=== PATIENT | female | born 1950 | race Caucasian/White ===

== ENCOUNTER 2024-05-07 19:18 | Inpatient (IN) | payer MEDICARE, OTHER, SELFPAY ==
[2024-05-07 12:21] VITALS: BP 136/90
[2024-05-07 13:17] LABS: % Basophils 0.1 % (0-2); % Eosinophils 0.1 % (0-6); % Immature Granulocytes 0.1 % (0-0.5); % Lymphocytes 9.5 % (20.5-51.1); % Monocytes 7.4 % (1.7-9.3); % Neutrophils 82.8 % (42.2-75.2); Absolute Lymphocytes 0.9 10^3/uL (1.2-3.4); Absolute Monocytes 0.7 10^3/uL (0.1-0.6); Absolute Neutrophils 7.5 10^3/uL (1.4-6.5); Hemoglobin 14.9 g/dL (12.0-16.0); Mean Corp Hgb Conc. 33.9 g/dL (33.0-37.0); Mean Corpuscular Volume 88.5 fL (81.0-99.0); Mean Platelet Volume 11.5 fL (7.4-10.4); Nucleated Red Blood Cells % 0 %; Platelet Count 238 10^3/uL (130-400); Red Blood Cell Count 4.97 10^6/uL (4.20-5.40); Red Cell Dist. Width 12.6 % (11.5-14.5); White Blood Cell Count 9.1 10^3/uL (4.8-10.8)
--- NOTE | 2024-05-07 13:24 | ED.GENMED ---
History of Present Illness
General
Chief Complaint: Abdominal Symptoms
Source: patient
Exam Limitations: none
Time Seen by Provider: 05/07/24 13:01
Nursing documentation reviewed up to this point in time: agreed with
History of Present Illness
History of Present Illness:
Patient is a 73-year-old female with history of GERD presenting to the emergency department for evaluation of persistent nausea, vomiting, and diarrhea for the past 4 days. Patient states symptoms started initially around noon on Saturday and have
persisted. Patient essentially unable to keep any food or liquid down since. However�patient did state that yesterday she briefly thought symptoms were improving and she was able to tolerate 1 protein drink. However last night she then was up
with diarrhea every 15 minutes. Patient feels generally weak and lightheaded. No hematochezia. No urinary burning although does endorse little urine production.
Patient denies any fevers or chills. No chest pain or shortness of breath. No focal abdominal pain.
No known sick contacts.
Patient has been in touch with her primary care provider throughout this week who given persistence of symptoms was advised to come to the emergency department with concerns of dehydration.
Past History
Past History
ED Past Medical History: GERD, Other (Bleeding gastric ulcer in the past., Arthritis, osteoporosis) and Other (polypectomy)
ED Past Surgical History: Gynecological (Hysterectomy), Tonsilectomy and Other (Varicose vein surgery)
Social History
Tobacco: Former smoker
Alcohol: Daily
Drug: None
Personal:
Living: with family
Employment: Retired
Family History
Family History: Other (Noncontributory)
Review of Systems
Review of Systems
Allergies reviewed?: Yes
All Other Systems: ROS reviewed and negative except as documented in HPI and ROS
Phy Exam
Physical Exam
Physical Exam:
Vitals: Mildly hypertensive, otherwise vital signs stable. Afebrile
General: Patient is well appearing, no acute distress. Nontoxic appearing
Skin: Warm and dry, no rashes or lesions
Head: Normocephalic, atraumatic
Eyes: Sclera nonicteric. EOMs intact. No nystagmus.
Throat: Dry mucous membranes. Protecting airway
Neck: Normal ROM, no cervical spine tenderness, no meningismus
Cardiac: Regular rate and rhythm, no murmurs.
Pulm: Normal respiratory effort, no wheezes, rales, rhonchi heard on exam.
Abdomen: Abdomen soft. Mild diffuse abdominal tenderness without rebound tenderness or guarding. No CVA tenderness
Extremities: No evidence of cyanosis or edema. Palpable distal pulses
Neuro: AAOx3. Grossly intact.
Psychiatric: Normal affect.
Course
Orders/Labs/Results
Orders:
Orders
05/07/24 12:23
Electrocardiogram (*1) Urgent
Reason for Study: Fatigue / Weakness
EKG- Treatment ONCE
05/07/24 12:30
Complete Blood Count/With Diff Urgent
Comprehensive Metabolic Panel Urgent
Magnesium Urgent
05/07/24 13:16
0.9% Sodium Chloride 1000 ml [Nss] 1,000 ml IV BOLUS
Ondansetron Injectable [Zofran] 4 mg IV NOW STA
Pantoprazole [Protonix IV] 40 mg IV NOW STA
05/07/24 13:17
Ondansetron Injectable [Zofran] 4 mg .ROUTE .[facility]
05/07/24 13:25
Lipase Urgent
05/07/24 14:21
Ondansetron Injectable [Zofran] 4 mg IV NOW STA
05/07/24 14:28
Add On- LAB Urgent
Tests Added?: magensium
05/07/24 14:35
Norovirus by PCR Urgent
VIRGINIE Source: Feces/Stool
Specimen Description:
Date Specimen was Collected: 05/07/24
Time Specimen was Collected: 15:15
US Abdomen Complete/Upper Urgent
Comment:
Reason For Exam: RUQ pain,intractable nausea/vomiting,elevated LFTs
Abnormal Lab Results
05/07/24 05/07/24
12:30 13:25
MPV 11.5 H fL
(7.4-10.4)
Absolute Neuts (auto) 7.5 H 10^3/uL
(1.4-6.5)
Absolute Lymphs (auto) 0.9 L 10^3/uL
(1.2-3.4)
Absolute Monos (auto) 0.7 H 10^3/uL
(0.1-0.6)
Neutrophils % 82.8 H %
(42.2-75.2)
Lymphocytes % 9.5 L %
(20.5-51.1)
Chloride 94 L mmol/L
(98-107)
Glucose 128 H mg/dl
(70-99)
Total Bilirubin 1.6 H mg/dl
(0.2-1.3)
AST 77 H U/L
(14-36)
ALT 140 H U/L
(0-35)
Alkaline Phosphatase 185 H U/L
(38-126)
Lipase 435 H U/L
(23-300)
05/07/24 12:30
05/07/24 12:30
Vital Signs
Initial and Last Documented VS:
Initial Vital Signs
Temp Pulse Resp BP Pulse Ox
98.0 F 90 16 136/90 98
05/07/24 12:21 05/07/24 12:21 05/07/24 12:21 05/07/24 12:21 05/07/24 12:21
Last Documented Vital Signs
Temp Pulse Resp BP Pulse Ox
98.0 F 90 16 146/65 97
05/07/24 12:21 05/07/24 12:21 05/07/24 12:21 05/07/24 17:36 05/07/24 17:37
MDM/Problems Addressed
Differential Diagnosis Includes:
Not limited to: Viral gastroenteritis, GERD cholecystitis, appendicitis, diverticulitis, etc.
MDM/Problems Addressed:
73-year-old female with 4 days of nausea, vomiting, diarrhea�unable to tolerate p.o. food/liquid. No fevers or chills. No severe abdominal pain. No bacterial diarrhea risk factors. No sick contacts. Vital signs are stable on arrival, patient is
afebrile. Physical exam as above. Differential broad although history and physical most consistent with a viral gastroenteritis. Lower suspicion for acute infectious process given patient is afebrile with no leukocytosis and relatively benign
abdominal exam. EKG obtained in triage shows normal sinus rhythm without any acute ischemic changes. Will check basic labs. Will give IV fluids, Zofran, PPI. Will closely monitor and reassess.
Update: Into reassess patient at bedside. She remains with persistent vomiting. Will give another dose of IV Zofran. Labs reviewed. CBC without clinically significant abnormalities. CMP does show a transaminitis and obstructive pattern,
increased from prior. Given persistent symptoms along with transaminitis will obtain abdominal ultrasound.
Update: Ultrasound of abdomen reviewed. Cholelithiasis without evidence of acute cholecystitis. Low suspicion for this as patient is afebrile with no leukocytosis. Multiple lesions of liver concerning for metastasis. Did discuss this with
patient and she has no prior history of cancer or known malignancy. Although she has noted recent weight loss. Patient remains symptomatic with persistent nausea. Ultimately�symptoms most consistent with a viral gastroenteritis. Obstructive
transaminitis possibly due to an underlying GI malignancy of unknown origin. Will admit patient for continued IV hydration, symptomatic management and further workup. Patient admitted to hospitalist service in stable condition
Chronic conditions affecting care:
N/A
Acute Exacerbation and/or Progression of Chronic Illness:
N/A
*Radiology
Radiology exam reviewed: radiology read reviewed
*Pulse Oximetry
Patient hypoxic: no
*EKG
Interpreted by ED Provider?: Yes
EKG Intrepretation Date: 05/07/24
Interpretation: abnormal
Comparison EKG: changes noted
Heart Rate: 80
Rate: normal
Rhythm: sinus
[place]: normal axis
Interval: normal QT interval
QRS Pattern: normal QRS
Ischemia: non-specific ST changes
*Financial Intern Interpretation
Rate: Financial Intern- N/A
*Critical Care Note
Total Time (30-74mins, 75-104mins- exclusive of procedures): Not Applicable
Patient Management
Discussion with other providers: Hospitalist
Escalation/DeEscalation of care consider admission/obs:
Admit for continued IV hydration, symptomatic treatment, possible GI
ED Attending Note
-
Portions of this chart may have been created with voice recognition software.� Occasional wrong word or��sound alike� substitutions may have occurred due to the inherent limitations of voice recognition software.
Discharge Plan
Departure
Patient Disposition: Admit
Date of Disposition: 05/07/24
Time of Disposition: 16:49
Presentation/result/management discussed w/ accepting MD/DO: Hospitalist
Discharge Problem:
Intractable nausea and vomiting, Abdominal pain, Cholelithiasis, Elevated LFTs
Prescriptions:
No Action
Prolia 60 mg/mL Syringe
60 mg SC [id number] Qty: 0
Theragen Tablet
1 tab PO DAILY
famotidine [Pepcid] 20 mg Tablet
20 mg PO DAILYPRN PRN (Reason: gerd)
calcium carbonate [Calcium 500] 500 mg calcium (1,250 mg) Tablet
500 mg PO DAILY
ascorbic acid (vitamin C) [Vitamin C] 500 mg Tablet
500 mg PO DAILY
calcium carbonate [Tums] 200 mg calcium (500 mg) Tablet,Chewable
200 mg PO BIDPRN PRN (Reason: gerd)
cholecalciferol (vitamin D3) [Vitamin D3] 25 mcg (1,000 unit) Tablet
25 mcg PO DAILY
Referrals:
Joshua Carrasco MD [Family Provider] -
Interventions
Interventions:
*Risk Screen - Suicide Last Done: 05/07/24 12:21
*Neglect/Abuse Screening Last Done: 05/07/24 12:21
ED- Fall Risk Assessment Last Done: 05/07/24 13:30
*ED COVID-19 Vaccine History Last Done: 05/07/24 13:30
IT-Ptuwqz-Atwwixzdlr Assessment Last Done: 05/07/24 13:30
Discharge Date and Time
Print Language: LAO
[2024-05-07] MEDS: NSS 1000 IV ×2 (13:30→20:29)
[2024-05-07] MEDS: PROTONIX IV 40 MG IV (13:30)
[2024-05-07] MEDS: ZOFRAN 4 MG IV ×2 (13:31→16:07)
[2024-05-07 13:38] LABS: Alkaline Phosphatase 185 U/L (38-126); Blood Urea Nitrogen 15 mg/dl (7-17); Calcium 9.8 mg/dl (8.4-10.2); Carbon Dioxide 25 mmol/L (22-30); Chloride 94 mmol/L (98-107); Glucose 128 mg/dl (70-99); Potassium 4.4 mmol/L (3.5-5.1); Sodium 135 mmol/L (135-145); eGFR > 60.00
[2024-05-07 13:39] LABS: ALT (SGPT) 140 U/L (0-35); AST (SGOT) 77 U/L (14-36); Albumin 4.5 g/dl (3.5-5.0); Total Bilirubin 1.6 mg/dl (0.2-1.3); Total Protein 6.9 g/dl (6.3-8.2)
[2024-05-07 14:07] LABS: Lipase 435 U/L (23-300)
[2024-05-07 15:05] LABS: Magnesium 1.9 mg/dl (1.6-2.3)
--- NOTE | 2024-05-07 17:28 | HPS.HSE ---
Family Physician
-
Family Physician: Joshua Carrasco
Chief Complaint
-
Nausea vomiting diarrhea x 4 days, separate ongoing diarrhea 7 months with weight loss for months and elevated LFTs x 2 months
History of Present Illness
Impression/plan:
Admit to [facility]
73-year-old female complaining of persistent nausea, vomiting and diarrhea over the past 4 days. She has reportedly been unable to keep anything down including liquid and food since Saturday 4 days ago however she was briefly able to tolerate 1
protein drink yesterday 05/06/2024 which led to diarrhea every 15 minutes. States she has been trying to drink Pedialyte. I did remind her this is loaded with sugar and can exacerbate diarrhea. Patient reports feeling generally weak, lightheaded
with some dysuria but scant urine. She denies fever, chills, chest pain, palpitations, shortness of breath, cough, focal abdominal pain, rash, sick contacts. She tells me that she has had ongoing diarrhea since approximately October 2023 6 times a
day she decided to go on a gluten-free diet without being seen by her PCP or cyber special agent. She states that the diarrhea went down from 6-3 times per day and she had a total 20 pound weight loss from November till March in 4 months. She was
seen by her PCP Dr. Joshua Carrasco [facility] in March and told that her liver function studies were elevated. The physician wanted to monitor her LFTs she however does not recall if she told him she has had ongoing diarrhea since
October she did state he was aware she made some gluten changes when she asked to have a gluten test completed. At no point did she reach out to her former cyber special agent about ongoing diarrhea or weight loss. She used to see Dr. Alberts last
colonoscopy was 2 to 3 years ago where her bile duct was nicked which led to pancreatitis. She was linked up with Sarika Larson and is due for routine colonoscopy and 2025. She does have past medical history of multiple benign polypectomies with
family history of father age 56 from colon cancer. 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 She reports she was never able to have children was
unsure the cause of her' blocked fallopian tubes'.
She has past medical history of GERD, bleeding gastric ulcer, arthritis, osteoporosis, former smoker, former daily alcohol use 50 years stopped November 2023, polypectomy multiple:�Benign, infected ovary with bilateral blocked fallopian tubes
requiring emergent hysterectomy/bilateral oophorectomy at age 35.
Medical History
Past Medical History
Past Medical History: Reports Other
Additional Past Medical History:
GERD
bleeding gastric ulcer
arthritis/osteoporosis
former smoker less than 1/4 pack stopped age 34 smoked total 15 years
former daily alcohol use 50 years stopped November 2023
polypectomy multiple:�Benign,
infected ovary with bilateral blocked fallopian tubes requiring emergent hysterectomy/bilateral oophorectomy at age 35.
Past Surgical History: Reports Other
Additional Past Surgical History:
infected ovary with bilateral blocked fallopian tubes requiring emergent Hysterectomy/bilateral oophorectomy at age 35.
Bilateral cataract extraction with lens implants
Social History
Tobacco: Former Smoker (Smoked less than 1/4 pack for 15 years stopped age 34)
Alcohol: Former (Drank 2 glasses of wine or 2 mixed drinks daily x 50 years stopped November 2023)
Drug: None
Personal:
Living: With Family ( Gaurav)
Employment: Retired
Family History
Family History: Other (Father colon cancer age 56 Sister history of uterine cancer survived age 40)
Allergies / Home Medications
Allergies reflects when Allergies were last updated in [facility].
Home Medications with original date entered in [facility]
Allergy/Medication List:
Allergies
Allergy/AdvReac Type Severity Reaction Status Date / Time
amoxicillin Allergy Nausea Verified 05/07/24 12:22
ibuprofen Allergy Rash Verified 05/07/24 12:22
latex Allergy Rash Verified 05/07/24 12:22
Sulfa (Sulfonamide Allergy Swelling Verified 05/07/24 12:22
Antibiotics)
sulfamethoxazole Allergy Swelling Verified 05/07/24 12:22
trimethoprim Allergy Swelling Verified 05/07/24 12:22
Home Medications
denosumab 60 mg/mL subcutaneous syringe (Prolia) 60 mg SC [id number] Osteoporosis ##0 11/03/20
ascorbic acid (vitamin C) 500 mg tablet (Vitamin C) 500 mg PO DAILY 05/07/24
calcium carbonate 500 mg PO DAILY 05/07/24
calcium carbonate (Tums) 200 mg PO BIDPRN PRN gerd 05/07/24
cholecalciferol (vitamin D3) 25 mcg (1,000 unit) tablet (Vitamin D3) 25 mcg PO DAILY 05/07/24
famotidine 20 mg tablet (Pepcid) 20 mg PO DAILYPRN PRN gerd 05/07/24
therapeutic multivitamin 1 tab PO DAILY 05/07/24
Review of Systems
-
History Source: Patient and Family ( Gaurav at bedside)
A 12 point ROS was completed and negative except as noted: Yes
Constitutional: Reports Weight Loss (20 pounds past 4 months) and Fatigue; Denies Fever or Chills
EENT: Denies Sore Throat or Runny Nose
Respiratory: Denies Cough or Trouble Breathing
Cardiac: Denies Chest Pain, Diaphoresis, Palpitations or Syncope
Abdomen/GI: Reports Nausea, Vomiting and Diarrhea; Denies Abdominal Pain
: Denies Dysuria, Frequency, Flank Pain, Incontinence or Difficulty Voiding
Musculoskeletal: Denies Joint Pain or Edema
Skin: Denies Itching or Rash
Neurological: Reports Weakness (Generalized); Denies Dizzy or Headache
Endocrine: Reports No Symptoms
Hematologic/Lymphatic: Reports No Symptoms
Psych: Reports Calm
Physical Exam
Vital Signs
Vital Signs
Temp Pulse Resp BP Pulse Ox
98.0 F 90 16 136/90 98
05/07/24 12:21 05/07/24 12:21 05/07/24 12:21 05/07/24 12:21 05/07/24 12:21
Physical Exam
General: Conversant; No Fever or Chills
HEENT: NormoCephalic, Anicteric, PERRLA, [place] Conjunctivae, No Ptosis and Other (Dry oral mucosa)
Respiratory: Clear; No Wheezes, Rales or Rhonchi
Cardiac: S1/S2 and Regular Rhythm; No Murmur, Rub or Gallop
Breast: Deferred by me
GI: Soft, Non Tender, Non Distended, Normal Bowel Sounds and No Hepatosplenomegaly
Rectal: Deferred by Provider
Genito-urinary: Deferred by me
Musculoskeletal: No Clubbing, No Cyanosis and No Edema
Skin: Warm and Dry; No Rash or Jaundice
Neuro: AO x 3, No Motor Deficits, Nonfocal/grossly intact, Cranial Nerves Intact and No Sensory Deficits; No Slurred Speech, Facial Droop, Tremors or Sedated
Psych: Calm
Laboratory Results
-
05/07/24 12:30
05/07/24 12:30
Laboratory Results
Total Bilirubin 1.6 mg/dl (0.2-1.3) H 05/07/24 12:30
AST 77 U/L (14-36) H 05/07/24 12:30
ALT 140 U/L (0-35) H 05/07/24 12:30
Alkaline Phosphatase 185 U/L (38-126) H 05/07/24 12:30
Lipase 435 U/L (23-300) H 05/07/24 13:25
Impression/Plan
-
Impression/plan:
Admit to MedSurg
#Acute Gastroenteritis likely viral WBC negative, afebrile, normotensive
4-day history nausea, vomiting, diarrhea
1 L IV NSS given in ER, continue IV NSS 100 cc/h
-IV Zofran as needed monitor QTc
-IV pepcid 20 mg daily
-Check norovirus
-Clear liquid diet
-Follow CBC, CMP
EKG: NSR 80 bpm, QTc 408 MS T wave V1 V2
#Acute Transaminitis ultrasound concerning for HIGHLY SUSPICIOUS HEPATIC LESIONS/Metastases / conc Intraductal papillary mucinous NEOPLASM
Per patient reported transaminitis at PCP Dr. Joshua Carrasco [facility] cardiology March 2024�obtain records*
Ongoing diarrhea x 7 months 3-6 times daily with 20 pound weight loss in 4 months
AST 77, ALT 140, alk phos 185, lipase 435
-Follow CMP
-Consult Gastroenterology
-Check INR/PTT
Ultrasound abdomen complete:
1. Innumerable hepatic lesions highly suspicious for metastases.
2. Cystic lesion in the pancreatic body measuring up to 1.5 cm, likely a pseudocyst given the history of pancreatitis.
Differential includes side branch intraductal papillary mucinous neoplasm. This could be further evaluated with nonemergent MRI.
3. Cholelithiasis without sonographic evidence for acute cholecystitis
4. Borderline splenomegaly.
#Multiple benign colon polypectomies
Last colonoscopy 2 to [address] Alberts complicated with necked bile duct/pancreatitis
#GERD
#Bleeding gastric ulcer
-Continue Pepcid 20 mg daily as needed
-Hold PPI as this exacerbates her diarrhea
#Osteoporosis hx
3#ormer smoker
-15 years less than 1/4 pack a day quit age 34
#Former alcohol use
Daily 2 drinks wine or mixed drinks daily> 50 years stopped November 2023
-Check B12, folate
DVT prophylaxis
SCDs
Full code with Gaurav at bedside
[2024-05-07 17:36] VITALS: BP 146/65
[2024-05-07 18:00] VITALS: BP 153/71
--- NOTE | 2024-05-07 18:04 | W.PN.UPDATE ---
Update Note
Progress Note Update
This is an addendum to H&P written by [employer] WAREHOUSE DEVELOPER Cortney Muhammad
I saw and examined the patient.
The OR[employer] WAREHOUSE DEVELOPER's note was reviewed and I agree with the note.
Comment:
Ms. Rosa Elena Barker is a 73 yo woman with hx alcohol use who presents to the ER with acute nausea/vomiting/diarrhea x 4 days. She also reports 6 months of diarrhea and hx elevated liver enzymes.
Triage VS: T 98, P 90, RR 16, BP 136/90, SpO2 98%
LABS: WBC 9.1, Hg 14.9, PLT 238, Na 135, K+ 4.4, Cl 94, CO2 25, BUN 15, Cr 0.8, Glucose 128, Mag 1.9, T. Bili 1.6, AST 77, ALT 140, Alk Phos 185, Lipase 435
RUQ US:
IMPRESSION:
1. Innumerable hepatic lesions highly suspicious for metastases.
2. Cystic lesion in the pancreatic body measuring up to 1.5 cm, likely a pseudocyst given the history of pancreatitis. Differential includes side branch intraductal papillary mucinous neoplasm. This could be further evaluated with nonemergent MRI.
3. Cholelithiasis without sonographic evidence for acute cholecystitis
4. Borderline splenomegaly.
MAR: IVF, IV Zofran x 2, IV Protonix
Acute Gastroenteritis
-supportive care with IVF, IV Zofran PRN
-clear liquids for tonight
-testing Norovirus
Abnl US findings concerning for metastatic hepatic lesions and pancreatic syt
-obtain MRI with and without contrast
-GI consult
hx Alcohol use
-stopped 5 months ago
Remainder of plan per [employer] WAREHOUSE DEVELOPER note
--- NOTE | 2024-05-07 19:27 | W.PN.UPDATE ---
Update Note
Progress Note Update
Hepatic mets
Discussed case with GI from Dr. De La Paz
-Will consult oncology Case discussed with Dr. Alan Montero recommends IR consult for hepatic mets biopsy
-Dr. Arroyo interventional radiology aware of consult and plan for tomorrow 05/08/2024 hepatic mets biopsy
[2024-05-07 20:16] VITALS: BP 140/83; BMI 27.1
[2024-05-07 23:11] VITALS: BP 139/73
--- NOTE | 2024-05-08 01:25 | PTCARENOTE ---
Received pt from ED into room 2127 around 20:00. Pt ambulatory in room with no assistance. VSS. NS @ 100 ml/hr initiated in R FA IV. Feeling slightly nauseous with heartburn. No bowel movement since arrival to hospital. Oriented pt to room, safe
environment maintained, call gandhi within reach.
[2024-05-08] MEDS: NSS 1000 IV (06:22)
[2024-05-08 06:44] LABS: % Basophils 0.2 % (0-2); % Immature Granulocytes 0.2 % (0-0.5); % Lymphocytes 21.1 % (20.5-51.1); % Monocytes 13.4 % (1.7-9.3); % Neutrophils 64.1 % (42.2-75.2); Absolute Eosinophils 0.1 10^3/uL (0-0.7); Absolute Monocytes 0.7 10^3/uL (0.1-0.6); Absolute Neutrophils 3.2 10^3/uL (1.4-6.5); Hematocrit 37.3 % (37.0-47.0); Hemoglobin 12.6 g/dL (12.0-16.0); Mean Corp Hgb Conc. 33.8 g/dL (33.0-37.0); Mean Corpuscular Hgb 30.4 pg (27.0-31.0); Mean Corpuscular Volume 89.9 fL (81.0-99.0); Mean Platelet Volume 11.2 fL (7.4-10.4); Nucleated Red Blood Cells % 0 %; Platelet Count 159 10^3/uL (130-400); Red Blood Cell Count 4.15 10^6/uL (4.20-5.40); Red Cell Dist. Width 12.6 % (11.5-14.5); White Blood Cell Count 4.9 10^3/uL (4.8-10.8)
[2024-05-08 06:47] LABS: INR 1.04; PT 14.1 Sec (11.4-14.6)
[2024-05-08 07:10] VITALS: BP 133/60
--- NOTE | 2024-05-08 07:16 | CON.GI ---
Addendum entered and electronically signed by Zbigniew De La Paz MD 05/08/24 13:49:
I saw and examined the patient.
The TAX COMPLIANCE OFFICER or PA's note was reviewed and I agree with the note.
Comment: 73yo female presents with n/v and diarrhea. US on admission shows multiple liver lesions c/w mets and pancreatic cyst. She reports erratic stools and weight loss since November, lost about 20 pounds. Had colonoscopy in 2020-
diverticulosis, EGD in 2015- gastritis. She had pancreatitis after her colonoscopy in 2020. Denies EtOH. F/u MRI showed resolution of pancreatitis.
REC:
CT CAP ordered
AFP, CEA, CA 19-9 pending
IR biopsy of liver mets after CT. Pt prefered to wait until CT done before proceeding with invasive procedure, which was reasonable
Oncology following
Addendum entered and electronically signed by SATNAM Long 05/08/24 11:03:
after review with patient, radiology, oncology-- pt declines to proceed with biopsy first. Will proceed with CT then decide next step after CT reviewed.
Original Note:
Consultation
-
Date/Time Consultation Requested: 05/07/24 1850
Date/Time Consultation Performed: 05/08/24 0940
Requesting Provider: SATNAM Bingham
Performing Provider: SATNAM Sexton, Zbigniew De La Paz MD
Reason for Consultation: abnomal imaging
Medical History
Chief Complaint / HPI
Chief Complaint: nausea/vomiting/diarrhea
History of Present Illness:
Pt is a 73yo presents with hx GERD, PUD with prior bleeding ulcers, arthritis, osteoporosis, colon polyps, former ETOH/tobaccos use, infected ovary and b/l fallopian tube with urgent hysterectomy/oophorectomy at age 35 presents with onset of nausea,
vomiting and diarrhea for 4 days. On admission noted with US abdomen- Innumerable hepatic lesions highly suspicious for metastases. Also noted Cystic lesion in the pancreatic body measuring up to 1.5 cm, likely a pseudocyst given the history of
pancreatitis. Differential includes side branch intraductal papillary mucinous neoplasm. cholelithiasis and borderline SM. In review with patient she has onset of GERD with improvement with PPI therapy but noted diarrhea with medication use up to 6
times per day. Last October she changed to gluten free diet and quit ETOH. She did have improvement and some wt loss up to about 35 lbs since that time. She was noted by PCP with mild LFT elevation last fall. She continued to have diarrhea with
changes in PPI to generic but now presents with sudden onset of nausea/vomiting/diarrhea with concern for GI viral illness with noted abnormal US and elevated LFT's.
Pt otherwise admit to some dysphagia new since recent vomiting. She also admits to abdominal pain diffuse with period of severe pain in different part of abdomen. She otherwise denies odynophagia, GERD, constipation, or rectal bleeding. No
NSAID or anticoagulation use. Last colonoscopy 10/2020 [facility]- - Mild diverticulosis in the sigmoid colon. Last EGD 08/2015 with reg z line, minimal antral gastritis, normal duodenum with neg bx.
Past Medical History
Past Medical History: GERD and Other (gastric ulcer with bleeding, ulcer osteoporosis, colon polyps, prior ETOH use, prior smoker, infected ovary with b/l blocked fallopian tube with emergent hysterectomy/oophorectomy at age 35 )
Social History
Tobacco: Former Smoker
Alcohol: Former (social quit 10/2023 )
Drug: None
Living: Alone
Employment: Retired
Family History
Family History: Other (father colon CA in 50's )
Allergies / Home Medications
Allergy/AdvReac Type Severity Reaction Status Date / Time
adhesive tape Allergy Rash Verified 05/07/24 20:10
amoxicillin Allergy Nausea Verified 05/07/24 20:09
ibuprofen Allergy Rash Verified 05/07/24 12:22
latex Allergy Rash Verified 05/07/24 12:22
Sulfa (Sulfonamide Allergy Swelling-NECK Verified 05/07/24 20:09
Antibiotics) SWELLING
AND
STIFFNESS
sulfamethoxazole Allergy Swelling Verified 05/07/24 20:09
trimethoprim Allergy Swelling Verified 05/07/24 20:09
�Medication �Instructions �Recorded
denosumab 60 mg/mL subcutaneous 60 mg SC [id number] Osteoporosis ##0 11/03/20
syringe (Prolia)
ascorbic acid (vitamin C) 500 mg 500 mg PO DAILY 05/07/24
tablet (Vitamin C)
calcium carbonate 500 mg PO DAILY 05/07/24
calcium carbonate (Tums) 200 mg PO BIDPRN PRN gerd 05/07/24
cholecalciferol (vitamin D3) 25 25 mcg PO DAILY 05/07/24
mcg (1,000 unit) tablet (Vitamin
D3)
famotidine 20 mg tablet (Pepcid) 20 mg PO DAILYPRN PRN gerd 05/07/24
therapeutic multivitamin 1 tab PO DAILY 05/07/24
Review of Systems
-
History Source: Patient
Constitutional: Reports Weight Loss
EENT: Reports No Symptoms
Respiratory: Reports No Symptoms
Abdomen/GI: Reports Abdominal Pain, Nausea, Vomiting and Diarrhea (acute on chronic )
: Reports No Symptoms
Musculoskeletal: Reports No Symptoms
Skin: Reports No Symptoms
Neurological: Reports No Symptoms
Endocrine: Reports No Symptoms
Hematologic/Lymphatic: Reports No Symptoms
Vital Signs
Temp Pulse Resp BP Pulse Ox
99.1 F 79 17 139/73 96
05/07/24 23:11 05/07/24 23:11 05/07/24 23:11 05/07/24 23:11 05/08/24 02:22
Physical Exam
Exam
General: Well Developed, Well Nourished and No Apparent Distress
HEENT: Normocephalic
Respiratory: Clear
Cardiac: Regular Rhythm
GI: Soft and Non Distended
Musculoskeletal: No Clubbing and No Cyanosis
Skin: Warm and Dry
Neuro: Awake, Alert and AO x 3
Psych: Calm
Results
WBC 4.9 10^3/uL (4.8-10.8) 05/08/24 05:56
Hgb 12.6 g/dL (12.0-16.0) 05/08/24 05:56
Hct 37.3 % (37.0-47.0) 05/08/24 05:56
MCV 89.9 fL (81.0-99.0) 05/08/24 05:56
Plt Count 159 10^3/uL (130-400) D 05/08/24 05:56
Absolute Neuts (auto) 3.2 10^3/uL (1.4-6.5) 05/08/24 05:56
PT 14.1 Sec (11.4-14.6) 05/08/24 05:56
INR 1.04 05/08/24 05:56
Sodium 135 mmol/L (135-145) 05/07/24 12:30
Potassium 4.4 mmol/L (3.5-5.1) 05/07/24 12:30
Chloride 94 mmol/L (98-107) L 05/07/24 12:30
Carbon Dioxide 25 mmol/L (22-30) 05/07/24 12:30
BUN 15 mg/dl (7-17) 05/07/24 12:30
Creatinine 0.8 mg/dL (0.6-1.0) 05/07/24 12:30
Calcium 9.8 mg/dl (8.4-10.2) 05/07/24 12:30
Total Bilirubin 1.6 mg/dl (0.2-1.3) H 05/07/24 12:30
AST 77 U/L (14-36) H 05/07/24 12:30
ALT 140 U/L (0-35) H 05/07/24 12:30
Alkaline Phosphatase 185 U/L (38-126) H 05/07/24 12:30
Lipase 435 U/L (23-300) H 05/07/24 13:25
Diagnostic Image Results:
05/07/24 US Abdomen Complete/Upper
1. Innumerable hepatic lesions highly suspicious for metastases.
2. Cystic lesion in the pancreatic body measuring up to 1.5 cm, likely a pseudocyst given the history of pancreatitis. Differential includes side branch intraductal papillary mucinous neoplasm. This could be further evaluated with nonemergent MRI.
3. Cholelithiasis without sonographic evidence for acute cholecystitis
4. Borderline splenomegaly.
Prior GI Procedures:
EGD: 08/2015 with reg z line, minimal antral gastritis, normal duodenum with neg bx.
Colonoscopy: 10/2020 [facility]- - Mild diverticulosis in the sigmoid colon.
Assessment / Plan
-
Pt is a 73yo presents with hx GERD, PUD with prior bleeding ulcers, arthritis, osteoporosis, colon polyps, former ETOH/tobaccos use, infected ovary and b/l fallopian tube with urgent hysterectomy/oophorectomy at age 35 presents with onset of nausea,
vomiting and diarrhea for 4 days. On admission noted with US abdomen- Innumerable hepatic lesions highly suspicious for metastases. Also noted Cystic lesion in the pancreatic body measuring up to 1.5 cm, likely a pseudocyst given the history of
pancreatitis. Differential includes side branch intraductal papillary mucinous neoplasm. cholelithiasis and borderline SM. In review with patient she has onset of GERD with improvement with PPI therapy but noted diarrhea with medication use up to 6
times per day. Last October she changed to gluten free diet and quit ETOH. She did have improvement and some wt loss up to about 35 lbs since that time. She was noted by PCP with mild LFT elevation last fall. She continued to have diarrhea with
changes in PPI to generic but now presents with sudden onset of nausea/vomiting/diarrhea with concern for GI viral illness with noted abnormal US and elevated LFT's.
-acute onset of nausea/vomiting/abdominal pain
-chronic diarrhea
-intermittent abdominal pain
-US with liver mets
-increased LFT's
-cystic pancreatic lesion up to 1.5 cm
-wt loss with change in diet
-new dysphagia with recent vomiting
other med problems:
-GERD
-PUD with bleeding ulcer
-arthritis
-osteoporosis
-colon polyps
-former ETOH/tobacco use
-hx infected ovary/fallopian tube with prior oophorectomy/hysterectomy
PLAN:
Etiology of symptoms with concern for metastatic disease - pancreatic vs other
await norovirus to rule out with acute nausea/vomiting and diarrhea vs related to other issues with new liver lesions
sent message to hospitalist, oncology for next step-- further imaging CT vs MRI vs proceed with liver biopsy
await oncology input
cont NPO
trend labs
will add stool studies, fecal fat, elastase, celiac with ongoing diarrhea
-
-
-
Thank you for consultation and allowing me to participate in the patient's care. Please call the internal corrosion specialist GI physician during the after hours with any questions or concerns.
[2024-05-08 07:34] LABS: ALT (SGPT) 111 U/L (0-35); AST (SGOT) 57 U/L (14-36); Albumin 3.3 g/dl (3.5-5.0); Alkaline Phosphatase 128 U/L (38-126); Blood Urea Nitrogen 11 mg/dl (7-17); Calcium 8.2 mg/dl (8.4-10.2); Carbon Dioxide 24 mmol/L (22-30); Chloride 103 mmol/L (98-107); Estimated Creatinine Clearance 60 ml/min; Glucose 89 mg/dl (70-99); Potassium 4.3 mmol/L (3.5-5.1); Sodium 136 mmol/L (135-145); Total Bilirubin 1.3 mg/dl (0.2-1.3); Total Protein 5.4 g/dl (6.3-8.2); eGFR > 60.00
[2024-05-08 08:08] LABS: Hepatitis C Antibody Negative (Negative)
[2024-05-08 08:28] LABS: Folate > 20.0 ng/ml (2.76-20); Vitamin B12 605 pg/ml (239-931)
--- NOTE | 2024-05-08 09:08 | CON.ONC ---
Documented by User: Solitario Liang DO, Resident 05/08/24 11:43
Impression
Impression
Right upper quadrant ultrasound demonstrated hepatic metastases of unknown origin. Patient reports being up-to-date on her colonoscopy, last was 4 years ago with a removed noncancerous polyps
Patient is a daily drinker, 1-2 drinks of wine daily at night for an unknown amount of time
Discussion was had between primary team and Dr. Montero, Dr. Montero recommended percutaneous IR biopsy of one of the hepatic metastases. IR was consulted and biopsy is currently pending today
Further discussion of treatment options contingent on biopsy results
Patient reports some neurologic symptoms, headache, lightheadedness but no focal neurologic deficits. Believe neurologic symptoms are secondary to dehydration. If symptoms do not resolve with fluid and time, appropriate to image head for
intracranial metastases
Plan
Plan
Tissue sampling of hepatic metastases by interventional radiology, percutaneous image-guided biopsy pending today
Further discussion of treatment options dependent on primary cancer location and histochemistry to check for any actionable mutations
GI consult pending
Patient has no focal neurologic deficits on exam, believe appropriate to hold off on head imaging at this time. If neurologic symptoms of headache and lightheadedness do not resolve with fluids and time appropriate to consider imaging to rule out
intracranial metastasis
As patient has hepatic metastases of unknown origin, will order CT chest abdomen pelvis with IV contrast and oral
Will order AFP, CEA, CA 19-9
Patient History
History of Present Illness
73 female past medical history of alcohol use, pancreatitis presents for 4 days of nausea vomiting diarrhea. Reports nonbloody, watery diarrhea believes secondary to GI bug as her symptoms are now resolving. Right upper quadrant ultrasound
performed in ED demonstrated innumerable hepatic metastases. Patient reports she is drink alcohol 1-2 drinks per day for an unknown period of time. Patient reports she is up-to-date on her colonoscopy, last one was 4 years ago where they removed
noncancerous polyps. Oncology was consulted due to hepatic mets of unknown origin.
Patient Medication
�Medication �Instructions �Recorded �Confirmed �Last Taken �Type
denosumab 60 mg/mL subcutaneous 60 mg SC [id number] Osteoporosis ##0 11/03/20 05/07/24 Unknown History
syringe (Prolia)
ascorbic acid (vitamin C) 500 mg 500 mg PO DAILY 05/07/24 05/07/24 3 Days Ago History
tablet (Vitamin C) ~05/04/24
calcium carbonate 500 mg PO DAILY 05/07/24 05/07/24 3 Days Ago History
~05/04/24
calcium carbonate (Tums) 200 mg PO BIDPRN PRN gerd 05/07/24 05/07/24 05/06/24 History
cholecalciferol (vitamin D3) 25 25 mcg PO DAILY 05/07/24 05/07/24 3 Days Ago History
mcg (1,000 unit) tablet (Vitamin ~05/04/24
D3)
famotidine 20 mg tablet (Pepcid) 20 mg PO DAILYPRN PRN gerd 05/07/24 05/07/24 3 Days Ago History
~05/04/24
therapeutic multivitamin 1 tab PO DAILY 05/07/24 05/07/24 3 Days Ago History
~05/04/24
Active Medications
Generic Name Dose Route Start Last Admin
Trade Name Freq PRN Reason Stop Dose Admin
Acetaminophen 650 mg 05/07/24 19:56
Acetaminophen 325 Mg Tablet PO 06/04/24 19:55
Q4HPRN PRN
mild pain/BEATTY/temp> 100.4F
Sodium Chloride 1,000 mls @ 100 mls/hr 05/07/24 19:56 05/08/24 06:22
Nss IV 1,000 mls
.Q10H DARWIN Administration
Ondansetron HCl 4 mg 05/07/24 19:56
Ondansetron 4 Mg/2 Ml Vial IV 06/04/24 19:55
Q6HPRN PRN
nausea and vomiting
Sodium Chloride 0 flush 05/07/24 21:00
Sodium Chloride 0.9% (Flush) Syringe IV 06/04/24 20:59
PER PROTOCOL DARWIN
Review of Systems
-
History Source: Patient
Constitutional: Reports Weight Loss
Respiratory: Reports No Symptoms
Cardiac: Reports No Symptoms
GI: Reports Abdominal Pain (Reports abdominal tenderness diffusely, worse epigastrium and right upper quadrant), Nausea, Vomiting, Diarrhea and Other (Patient reports nonbloody, nonprojectile vomiting and diarrhea)
Neuro: Reports Dizzy, Headache and Lightheadedness; Denies Weakness
Physical Exam
-
General: No Apparent Distress and Comfortable
Cardiology: Normal Sinus Rhythm, S1 and S2
Pulmonary: Clear
GI: Soft and Other (Abdominal tenderness to light palpation worse in the epigastrium and right upper quadrant. No rebound, no guarding); Negative Distended
Musculoskeletal: No Edema
Neurology: Non Focal, No Lateralizing Symptoms, No Word Finding Difficulty and Other (No focal neurologic deficits on exam. Patient has equal strength in bilateral upper and lower extremities. Equal sensation throughout. Cranial nerves grossly
intact)
Skin: Warm and Dry
Psych: Calm and Intact Judgement/Insight
Labs
Lab Results
WBC 4.9 10^3/uL (4.8-10.8) 05/08/24 05:56
RBC 4.15 10^6/uL (4.20-5.40) L 05/08/24 05:56
Hgb 12.6 g/dL (12.0-16.0) 05/08/24 05:56
Hct 37.3 % (37.0-47.0) 05/08/24 05:56
MCV 89.9 fL (81.0-99.0) 05/08/24 05:56
MCH 30.4 pg (27.0-31.0) 05/08/24 05:56
MCHC 33.8 g/dL (33.0-37.0) 05/08/24 05:56
RDW 12.6 % (11.5-14.5) 05/08/24 05:56
Plt Count 159 10^3/uL (130-400) D 05/08/24 05:56
MPV 11.2 fL (7.4-10.4) H 05/08/24 05:56
Abs Immat Gran (auto) 0.0 10^3/uL (0-0.05) 05/08/24 05:56
Absolute Neuts (auto) 3.2 10^3/uL (1.4-6.5) 05/08/24 05:56
Absolute Lymphs (auto) 1.0 10^3/uL (1.2-3.4) L 05/08/24 05:56
Absolute Monos (auto) 0.7 10^3/uL (0.1-0.6) H 05/08/24 05:56
Absolute Eos (auto) 0.1 10^3/uL (0-0.7) 05/08/24 05:56
Absolute Basos (auto) 0.0 10^3/uL (0-0.2) 05/08/24 05:56
Immature Gran % 0.2 % (0-0.5) 05/08/24 05:56
Neutrophils % 64.1 % (42.2-75.2) 05/08/24 05:56
Lymphocytes % 21.1 % (20.5-51.1) 05/08/24 05:56
Monocytes % 13.4 % (1.7-9.3) H 05/08/24 05:56
Eosinophils % 1.0 % (0-6) 05/08/24 05:56
Basophils % 0.2 % (0-2) 05/08/24 05:56
Creatinine 0.8 mg/dL (0.6-1.0) 05/08/24 05:56
Vital Signs
Vital Signs
Temp Pulse Resp BP Pulse Ox
98.4 F 73 16 133/60 97
05/08/24 07:10 05/08/24 07:10 05/08/24 07:10 05/08/24 07:10 05/08/24 07:10

Documented by User: Ramin Torres MD 05/08/24 15:46
Plan
Plan
Tissue sampling of hepatic metastases by interventional radiology, percutaneous image-guided biopsy pending today
Further discussion of treatment options dependent on primary cancer location and histochemistry to check for any actionable mutations
GI consult pending
Patient has no focal neurologic deficits on exam, believe appropriate to hold off on head imaging at this time. If neurologic symptoms of headache and lightheadedness do not resolve with fluids and time appropriate to consider imaging to rule out
intracranial metastasis
As patient has hepatic metastases of unknown origin, will order CT chest abdomen pelvis with IV contrast and oral
Will order AFP, CEA, CA 19-9
Oncology Addendum:
Patient seen and evaluated and agree w/ resident note and plan as outlined
-liver lesions appreciated on abdominal US
-for CT C/A/P
-will likely need tissue biopsy pending CT results
-tumor markers - CEA, AFP, Ca19-9
Will continue to follow with you.
[2024-05-08] MEDS: OMNIPAQUE 50 ML PO (11:41)
--- NOTE | 2024-05-08 11:59 | W.PN.HOSP.TC ---
Today's Communication/Plan
-
Monitor vital signs see plan
Meyer CT
Clears for now
Monitor diarrhea
IVF
Assessment / Plan
Assessment / Plan
General: Conversant; No Fever or Chills
HEENT: NormoCephalic, Anicteric, PERRLA
Respiratory: Clear; No Wheezes, Rales or Rhonchi
Cardiac: S1/S2 and Regular Rhythm; No Murmur, Rub or Gallop
GI: Soft, Non Tender, Non Distended, Normal Bowel Sounds
Musculoskeletal: No Edema
Neuro: AO x 3, No Motor Deficits, Nonfocal/grossly intact
Psych: Calm
Acute Gastroenteritis likely viral WBC negative, afebrile, normotensive
4-day history nausea, vomiting, diarrhea
1 L IV NSS given in ER, continue IV NSS 100 cc/h
-IV Zofran as needed monitor QTc
-IV pepcid 20 mg daily
-Check norovirus neg
-Clear liquid diet
#Acute Transaminitis ultrasound concerning for HIGHLY SUSPICIOUS HEPATIC LESIONS/Metastases / conc Intraductal papillary mucinous NEOPLASM
Per patient reported transaminitis at PCP Dr. Jsohua Carrasco [facility] cardiology March 2024�obtain records*
Ongoing diarrhea x 7 months 3-6 times daily with 20 pound weight loss in 4 months
AST 77, ALT 140, alk phos 185, lipase 435
-Follow CMP
GI following. Discussed with oncologist. Meyer CT ordered. Patient does not want biopsy until get CT scan.
Ultrasound abdomen complete:
1. Innumerable hepatic lesions highly suspicious for metastases.
2. Cystic lesion in the pancreatic body measuring up to 1.5 cm, likely a pseudocyst given the history of pancreatitis.
Differential includes side branch intraductal papillary mucinous neoplasm. This could be further evaluated with nonemergent MRI.
3. Cholelithiasis without sonographic evidence for acute cholecystitis
4. Borderline splenomegaly.
#Multiple benign colon polypectomies
Last colonoscopy 2 to [address] Alberts complicated with necked bile duct/pancreatitis
#GERD
#Bleeding gastric ulcer
-Continue Pepcid 20 mg daily as needed
-Hold PPI as this exacerbates her diarrhea
#Osteoporosis hx
3#ormer smoker
-15 years less than 1/4 pack a day quit age 34
#Former alcohol use
Daily 2 drinks wine or mixed drinks daily> 50 years stopped November 2023
DVT prophylaxis
SCDs
Full code with Gaurav at bedside
I spent a total of 51 minutes with the patient or on the floor. More than 50% of this time involved counseling and coordination of care.
Anticipated Discharge: 24 - 48 hours
Subjective/Interval History
-
Date of Service: May 08, 2024
denies pain
Objective Data
-
Labs:
Laboratory Results
05/08/24
05:56
WBC 4.9
Hgb 12.6
Hct 37.3
Plt Count 159 D
PT 14.1
INR 1.04
Sodium 136
Potassium 4.3
Chloride 103
Carbon Dioxide 24
BUN 11
Creatinine 0.8
Glucose 89
Calcium 8.2 L D
Total Bilirubin 1.3
AST 57 H
ALT 111 H
Alkaline Phosphatase 128 H
Vital Signs:
Vital Signs
Temp Pulse Resp BP Pulse Ox
98.4 F 73 16 133/60 97
05/08/24 07:10 05/08/24 07:10 05/08/24 07:10 05/08/24 07:10 05/08/24 07:10
I&O
05/07/24 05/08/24 05/09/24
06:59 06:59 06:59
Intake Total 440 / 440
Balance 440 / 440
--- NOTE | 2024-05-08 13:14 | CM ---
Reviewed the chart notes and spoke with the patient at the bedside. The patient resides alone in a split level home with no steps to enter. The patient reports no DME/VN/SNF in the past. The patient confirmed her pharmacy of choice is [facility].
CM continues to be available to patient/family and is monitoring medical plan for needs at discharge.
Plan: Discharge to home when medically stable. No anticipated needs identified at this time.
[2024-05-08] MEDS: LR 1000 IV (13:35)
[2024-05-08 13:54] LABS: CEA 3.02 ng/ml
[2024-05-08 15:05] VITALS: BP 143/65
[2024-05-08] MEDS: NSS (PRESERVATIVE FREE) 10 ML IV (15:30)
[2024-05-08] MEDS: PROTONIX IV 40 MG IV (15:31)
[2024-05-08 16:00] VITALS: BMI 27.1
[2024-05-08 23:11] VITALS: BP 136/65
[2024-05-09] MEDS: LR 1000 IV (05:03)
[2024-05-09 05:41] VITALS: BMI 27.3
[2024-05-09 07:05] VITALS: BP 141/57
--- NOTE | 2024-05-09 08:05 | W.PN.GI.CBS2 ---
Today's Communication / Plan
-
CT CAP shows 3.5cm pancreatic tail mass with calcifications and multiple liver mets. Possible mucinous cystic neoplasm, serous cystadenoma or IPMN
IR-guided liver bx next with Oncology, can be done as outpt, then treatment based on path
OK for d/c. Will sign off
Assessment / Plan
-
Pt is a 73yo presents with hx GERD, PUD with prior bleeding ulcers, arthritis, osteoporosis, colon polyps, former ETOH/tobaccos use, infected ovary and b/l fallopian tube with urgent hysterectomy/oophorectomy at age 35 presents with onset of nausea,
vomiting and diarrhea for 4 days. On admission noted with US abdomen- Innumerable hepatic lesions highly suspicious for metastases. Also noted Cystic lesion in the pancreatic body measuring up to 1.5 cm, likely a pseudocyst given the history of
pancreatitis. Differential includes side branch intraductal papillary mucinous neoplasm. cholelithiasis and borderline SM. In review with patient she has onset of GERD with improvement with PPI therapy but noted diarrhea with medication use up to 6
times per day. Last October she changed to gluten free diet and quit ETOH. She did have improvement and some wt loss up to about 35 lbs since that time. She was noted by PCP with mild LFT elevation last fall. She continued to have diarrhea with
changes in PPI to generic but now presents with sudden onset of nausea/vomiting/diarrhea with concern for GI viral illness with noted abnormal US and elevated LFT's.
Impression:
Pancreatic tail mass with multiple liver mets
-
Subjective
Subjective
Date of Service: May 09, 2024
No complaints
Objective
Data Reviewed
Laboratory Data:
Laboratory Results
PT 14.1 Sec (11.4-14.6) 05/08/24 05:56
INR 1.04 05/08/24 05:56
Magnesium 1.9 mg/dl (1.6-2.3) 05/07/24 12:30
Total Bilirubin 1.3 mg/dl (0.2-1.3) 05/08/24 05:56
AST 57 U/L (14-36) H 05/08/24 05:56
ALT 111 U/L (0-35) H 05/08/24 05:56
Alkaline Phosphatase 128 U/L (38-126) H 05/08/24 05:56
Lipase 435 U/L (23-300) H 05/07/24 13:25
Vital Signs and I&O:
Vital Signs
Temp Pulse Resp BP Pulse Ox
99.7 F 70 19 136/65 97
05/08/24 23:11 05/08/24 23:11 05/08/24 23:11 05/08/24 23:11 05/08/24 23:11
I&O
05/08/24 05/09/24 05/10/24
06:59 06:59 06:59
Intake Total 440 / 440 2680 / 2680
Balance 440 / 440 2680 / 2680
Physical Exam
Physical Exam
GI: Soft, Non Distended and Non Tender
[2024-05-09 08:15] LABS: % Basophils 0.2 % (0-2); % Eosinophils 1.4 % (0-6); % Immature Granulocytes 0.2 % (0-0.5); % Lymphocytes 18.9 % (20.5-51.1); % Monocytes 13.9 % (1.7-9.3); % Neutrophils 65.4 % (42.2-75.2); Absolute Eosinophils 0.1 10^3/uL (0-0.7); Absolute Lymphocytes 0.8 10^3/uL (1.2-3.4); Absolute Monocytes 0.6 10^3/uL (0.1-0.6); Absolute Neutrophils 2.8 10^3/uL (1.4-6.5); Hematocrit 37.2 % (37.0-47.0); Hemoglobin 12.7 g/dL (12.0-16.0); Mean Corp Hgb Conc. 34.1 g/dL (33.0-37.0); Mean Corpuscular Hgb 30.2 pg (27.0-31.0); Mean Corpuscular Volume 88.6 fL (81.0-99.0); Mean Platelet Volume 11.7 fL (7.4-10.4); Nucleated Red Blood Cells % 0 %; Platelet Count 152 10^3/uL (130-400); Red Cell Dist. Width 12.6 % (11.5-14.5); White Blood Cell Count 4.2 10^3/uL (4.8-10.8)
[2024-05-09 08:22] LABS: ALT (SGPT) 93 U/L (0-35); AST (SGOT) 45 U/L (14-36); Albumin 3.4 g/dl (3.5-5.0); Alkaline Phosphatase 128 U/L (38-126); Blood Urea Nitrogen 6 mg/dl (7-17); Calcium 8.3 mg/dl (8.4-10.2); Carbon Dioxide 24 mmol/L (22-30); Chloride 105 mmol/L (98-107); Estimated Creatinine Clearance 80 ml/min; Glucose 94 mg/dl (70-99); Potassium 4.2 mmol/L (3.5-5.1); Sodium 136 mmol/L (135-145); Total Bilirubin 1.3 mg/dl (0.2-1.3); Total Protein 5.4 g/dl (6.3-8.2); eGFR > 60.00
[2024-05-09] MEDS: PROTONIX IV 40 MG IV (08:57)
[2024-05-09] MEDS: NSS (PRESERVATIVE FREE) 10 ML IV (08:59)
[2024-05-09] MEDS: FLUSH (NSS) 2 FLUSH IV (09:00)
--- NOTE | 2024-05-09 10:46 | W.PN.HOSP.TC ---
Addendum entered and electronically signed by Jose Reyes MD 05/18/24 14:11:
Severe protein calorie malnutrition
Original Note:
Today's Communication/Plan
-
Monitor vital signs see plan
Discussed with oncology, patient will follow-up with them soon outpatient for biopsy
Patient wants to go home, discharge today
Time of discharge 36 minutes
Assessment / Plan
Assessment / Plan
General: Conversant; No Fever or Chills
HEENT: NormoCephalic, Anicteric, PERRLA
Respiratory: Clear; No Wheezes, Rales or Rhonchi
Cardiac: S1/S2 and Regular Rhythm; No Murmur, Rub or Gallop
GI: Soft, Non Tender, Non Distended, Normal Bowel Sounds
Musculoskeletal: No Edema
Neuro: AO x 3, No Motor Deficits, Nonfocal/grossly intact
Psych: Calm
Acute Gastroenteritis likely viral WBC negative, afebrile, normotensive
4-day history nausea, vomiting, diarrhea; symptoms improving
1 L IV NSS given in ER, continue IV NSS 100 cc/h
- Zofran as needed monitor QTc
pepcid 20 mg daily
-norovirus neg; Cdiff neg
advance diet to reg
#Acute Transaminitis ultrasound concerning for HIGHLY SUSPICIOUS HEPATIC LESIONS/Metastases / conc Intraductal papillary mucinous NEOPLASM
Per patient reported transaminitis at PCP Dr. Joshua Carrasco [facility] cardiology March 2024�obtain records*
Ongoing diarrhea x 7 months 3-6 times daily with 20 pound weight loss in 4 months
AST 77, ALT 140, alk phos 185, lipase 435
-Follow CMP
GI following. Discussed with oncologist. Meyer CT 3.5cm pancreatic tail mass with calcifications and multiple liver mets. Possible mucinous cystic neoplasm, serous cystadenoma or IPMN
IR-guided liver bx next with Oncology, can be done as outpt, then treatment based on path
Questionable splenic ischemia
Few tiny pulmonary nodules.
Oncology following
Discussed with Dr. Mcginnis; patient will follow-up with oncology soon outpatient for biopsy
Ultrasound abdomen complete:
1. Innumerable hepatic lesions highly suspicious for metastases.
2. Cystic lesion in the pancreatic body measuring up to 1.5 cm, likely a pseudocyst given the history of pancreatitis.
Differential includes side branch intraductal papillary mucinous neoplasm. This could be further evaluated with nonemergent MRI.
3. Cholelithiasis without sonographic evidence for acute cholecystitis
4. Borderline splenomegaly.
#Multiple benign colon polypectomies
Last colonoscopy 2 to [address] Alberts complicated with necked bile duct/pancreatitis
#GERD
#Bleeding gastric ulcer
-Continue Pepcid 20 mg daily as needed
PPI
#Osteoporosis hx
3#ormer smoker
-15 years less than 1/4 pack a day quit age 34
#Former alcohol use
Daily 2 drinks wine or mixed drinks daily> 50 years stopped November 2023
DVT prophylaxis
SCDs
Full code with Gaurav at bedside
Anticipated Discharge: Today
Subjective/Interval History
-
Date of Service: May 09, 2024
denies pain
Objective Data
-
Labs:
Laboratory Results
05/09/24
07:27
WBC 4.2 L
Hgb 12.7
Hct 37.2
Plt Count 152
Sodium 136
Potassium 4.2
Chloride 105
Carbon Dioxide 24
BUN 6 L
Creatinine 0.6
Glucose 94
Calcium 8.3 L
Total Bilirubin 1.3
AST 45 H
ALT 93 H
Alkaline Phosphatase 128 H
Vital Signs:
Vital Signs
Temp Pulse Resp BP Pulse Ox
98.1 F 68 16 141/57 96
05/09/24 07:05 05/09/24 07:05 05/09/24 07:05 05/09/24 07:05 05/09/24 07:05
I&O
05/08/24 05/09/24 05/10/24
06:59 06:59 06:59
Intake Total 440 / 440 2680 / 2680
Balance 440 / 440 2680 / 2680
--- NOTE | 2024-05-09 10:56 | W.DCSUMMARY ---
Discharge Summary
Discharge Data
Date of Admission: 05/07/24
Date of Discharge: 05/09/24
-
Pending Results: Yes
Hospital Course
73-year-old female with past medical history of GERD, bleeding gastric ulcer, osteoporosis, former smoker, former alcohol use came to the hospital with nausea vomiting and diarrhea concerning for acute gastroenteritis. Patient symptoms continue to
improve over time. C. difficile and norovirus was negative. On admission patient also had acute transaminitis where ultrasound was concerning for hepatic lesions. Patient was seen by GI and oncology throughout hospitalization. Given her
findings, [place] CT was done which showed 3.5 cm pancreatic tail mass with calcifications and multiple liver metastases. CT scan also showed few pulmonary nodules. Patient was aware of these findings and wanted to follow-up closely with oncology
outpatient and wanted the biopsy done outpatient. Patient was provided oncology information and instructed to follow-up soon outpatient. Once patient's symptoms continue to improve and she was feeling better, she was then discharged home with
instructions to follow-up with all her physicians outpatient.
Discharge Plan
-
Patient Disposition: Home (Routine Discharge)
Discharge Diagnosis/Procedures: Elevated LFTs likely secondary to pancreatic tail mass with possible liver metastases
Suspected splenic ischemia
Pulmonary nodule
Diet: As tolerated
Activity: As tolerated
Driving Restrictions: As prior to admission
Bathing Restrictions: None
Blood Work: CMP next week with primary care provider
Referrals:
Zbigniew De La Paz MD [Active] -
Joshua Carrasco MD [Family Provider] - in less than 1 week
Ramin Torres MD [Active] - in less than 1 week (Please call oncology office and set up for biopsy)
Prescriptions:
New
pantoprazole [Protonix] 40 mg tablet,delayed release (DR/EC)
40 mg PO DAILY Qty: 30 0RF
Continued
Prolia 60 mg/mL Syringe
60 mg SC [id number] Qty: 0
therapeutic multivitamin Tablet
1 tab PO DAILY
famotidine [Pepcid] 20 mg Tablet
20 mg PO DAILYPRN PRN (Reason: gerd)
calcium carbonate 500 mg calcium (1,250 mg) Tablet
500 mg PO DAILY
ascorbic acid (vitamin C) [Vitamin C] 500 mg Tablet
500 mg PO DAILY
calcium carbonate [Tums] 200 mg calcium (500 mg) Tablet,Chewable
200 mg PO BIDPRN PRN (Reason: gerd)
cholecalciferol (vitamin D3) [Vitamin D3] 25 mcg (1,000 unit) Tablet
25 mcg PO DAILY
Discharge Orders:
Discharge Patient (As Directed); Ordered 05/09/24
Ordered By: Jose Reyes
Discharge Date and Time
Discharge Date/Time: 05/09/24 11:59
Print Language: HEBREW
--- NOTE | 2024-05-09 11:27 | CM ---
Patient seen at bedside with patient and daughter present. CM reviewed IMM, signed form placed on chart. Patient for discharge home with no need for VN. Patient family asked for medical record release and CM requested form to be given to
patient. Patient to follow up with PCP and Oncology. CM will continue to follow for discharge planning needs.
Plan; home to follow with PCP/Oncology
--- NOTE | 2024-05-09 11:41 | W.PN.ONC ---
Today's Communication / Plan
-
for d/c today
Will arrange IR biopsy of liver mass as outpatient, CA19-9 pending
Will arrange onc f/u as well
d/w patient, she has our contact info
Impression
Impression
pancreas mass, liver mets
Plan
Plan
for d/c today
Will arrange IR biopsy of liver mass as outpatient, CA19-9 pending
Will arrange onc f/u as well
d/w patient, she has our contact info
Subjective/Objective
Subjective/Objective
eager to go home
Vital Signs:
Vital Signs
Temp Pulse Resp BP Pulse Ox
98.1 F 68 16 141/57 96
05/09/24 07:05 05/09/24 07:05 05/09/24 07:05 05/09/24 07:05 05/09/24 07:05
Lab Results:
Laboratory Data
WBC 4.2 10^3/uL (4.8-10.8) L 05/09/24 07:27
Hgb 12.7 g/dL (12.0-16.0) 05/09/24 07:27
Plt Count 152 10^3/uL (130-400) 05/09/24 07:27
PT 14.1 Sec (11.4-14.6) 05/08/24 05:56
INR 1.04 05/08/24 05:56
eGFR > 60.00 05/09/24 07:27
Orders
Orders
Orders From Last 24 Hours
05/11/24 11:36
[facility] CONSULT Routine
[2024-05-09 11:55] VITALS: BP 146/71
[2024-05-11 04:37] LABS: IgA 66 mg/dl (70-400)
[2024-05-11 08:12] LABS: CA 19-9 115 U/mL (<=35)
[2024-05-11 14:45] LABS: tTG IgA Antibody <1.02 FLU (0.00-4.99)
--- NOTE | 2024-05-11 15:16 | PN.CDI ---
CDI
- -
CDI:
Physician Documentation Request
Admit Date: 05/07/24 19:18
Dear Doctor Eric,
Please review the following and provide your response in the progress notes.
Clinical Indicators:
- 05/08 [employer]er indicates severe protein calorie malnutrition
- Unintentional weight loss >5% in 1 month
- Nutrient intake </= 50% of estimated energy needs >/= 5 days
Based on the above information and your assessment, which of the following most accurately represents the patient's nutritional status?
Severe protein calorie malnutrition
Other (please specify)
[place] Criteria ([facility] Hospitalist 2017)
2 or more criteria must be present for either
non severe or severe malnutrition
Note that the criteria differs related to the
presence of an acute or chronic illness
Acute Illness Chronic Illness
Energy Intake Non Severe: <75% for >7 days Non Severe: <75% for >1 month
Severe: <50% for >5 days Severe: <75% for >1 month
Weight Loss Non Severe: 1-2% over 1 week Non Severe: 5% over 1 month
5% over 1 month 7.5% over 3 months
7.5% over 3 months 10% over 6 months
1 year N/A 20% over 1 year
Severe: >2% over 1 week Severe: >5% over 1 month
>5% over 1 month >7.5% over 3 months
>7.5% over 3 months >10% over 6 months
1 year N/A >20% over 1 year
Body Fat Non Severe: Mild Decrease Non Severe: Mild Loss
Severe: Moderate Decrease Severe: Severe Loss
Muscle Mass Non Severe: Mild Decrease Non Severe: Mild Loss
Severe: Moderate Decrease Severe: Severe Loss
Fluid Accumulation Non Severe: Mild Accumulation Non Severe: Mild Accumulation
Severe: Moderate to severe Severe: Moderate to severe
accumulation accumulation
Reduced Histologic Aide Strength Non Severe: N/A Non Severe: N/A
Severe: Measurably reduced Severe: Measurably reduced
Additional criteria that can be used to Determine if Mild or Moderate Malnutrition ([employer] Manual 2018)
Mild Moderate Severe
Albumin gm/dl <3.0 gm/dl <2.5 gm/dl <2.0 gm/dl
Pre Albumin mg/dl <15 gm/dl <10 mg/dl <5.0 mg/dl
BMI <18.5 <17 <16
Use of terms such as suspected, likely, concern for, or probable (associated with a specific diagnosis that is being evaluated, monitored, or treated as if it exists) are acceptable and can be coded in the inpatient setting, when documented at the
time of discharge.
Thank you,
Sonido Ibarra RN
CDI Specialist
Please use your independent medical judgment in providing your response.
[2024-05-13 07:12] LABS: Endomysial IgA Antibody Titer <1:10 (<1:10)
[2024-05-14 09:04] LABS: Fat, Fecal - Neutral Normal (Normal); Fat, Fecal - Split Normal (Normal)
[2024-05-14 15:58] LABS: Pancreatic Elastase, Fecal 407 ug/g (>=100)
[2024-05-16 23:16] LABS: AFP Male/Tumor Marker 11 ng/mL (0-9)
== END 2024-05-09 11:59 | disposition home or self-care (01) | DRG 391 ==
LOC: 2 NORTH 19:18
PROVIDERS: Clinical Nurse Specialist Family Health; Emergency Medicine; Nurse Practitioner Adult Health; Physician Assistant; ADMITTING PHYSICIAN Student in an Organized Health Care Education/Training Program; ATTENDING PHYSICIAN Internal Medicine; EMERGENCY PHYSICIAN Emergency Medicine; FAMILY PHYSICIAN Family Medicine; OTHER PHYSICIAN Internal Medicine Hematology & Oncology; OTHER PHYSICIAN Specialist
DX: A08.4 Viral intestinal infection, unspecified (principal); E43 Unspecified severe protein-calorie malnutrition; C22.9 Malignant neoplasm of liver, not specified as primary or secondary; K86.2 Cyst of pancreas; K52.9 Noninfective gastroenteritis and colitis, unspecified; K21.9 Gastro-esophageal reflux disease without esophagitis; K63.5 Polyp of colon; M19.90 Unspecified osteoarthritis, unspecified site; M81.0 Age-related osteoporosis without current pathological fracture; Z87.891 Personal history of nicotine dependence; Z80.0 Family history of malignant neoplasm of digestive organs; Z86.0100 Personal history of colon polyps, unspecified; Z90.710 Acquired absence of both cervix and uterus; Z60.2 Problems related to living alone; Z68.27 Body mass index [BMI] 27.0-27.9, adult
CPT/HCPCS: 71260; 74177; 76700; 80053; 82105; 82378; 82607; 82653; 82705; 82746; 82784; 83516; 83690; 83735; 85025; 85610; 86231; 86301; 86803; 87045; 87046; 87324; 87328; 87329; 87427; 87449; 87798; 89055; 93005; 96361; 96374; 96375; 96376; 99285; Q9967

== ENCOUNTER 2024-05-19 06:59 | Outpatient (REF) | payer MEDICARE, OTHER, SELFPAY ==
[2024-05-19] VITALS (12 sets, daily range): BP systolic 67–137; BP diastolic 55–89
== END 2024-05-19 11:00 | disposition home or self-care (01) ==
LOC: RADI 06:59
PROVIDERS: ATTENDING PHYSICIAN Internal Medicine Hematology & Oncology; FAMILY PHYSICIAN Family Medicine
DX: C7B.8 Other secondary neuroendocrine tumors (principal); C25.2 Malignant neoplasm of tail of pancreas
CPT/HCPCS: 88307; 47000; 76942; 88333; 88341; 88342; 88360; 99152; 99153

== ENCOUNTER → 2024-06-10 09:29 | Outpatient (REF) | payer MEDICARE, OTHER, SELFPAY | LOC: MRI 3T 09:29 | PROVIDERS: ATTENDING PHYSICIAN Internal Medicine Hematology & Oncology | DX: C25.2 Malignant neoplasm of tail of pancreas (principal); C25.0 Malignant neoplasm of head of pancreas | CPT/HCPCS: 70553; A9575 ==